=== PATIENT | female | born 1970 | race African-American/Black ===

== ENCOUNTER → 2018-09-07 07:12 | Day surgery (SDC) | payer MEDICARE, MEDICAID ==
--- NOTE | 2018-08-28 20:10 | HP ---
AMENDED REPORT NOW INCLUDES DESIGNATED COSIGNER CC: Dr. Shelli Callahan; Shivani Jaramillo NP * PREOPERATIVE HISTORY AND PHYSICAL: DATE OF ADMISSION/SURGERY: 09/07/18 This patient is scheduled for same-day surgery admission by Dr. Hendricks on Monday , 09/07/18. DATE OF PREOPERATIVE HISTORY AND PHYSICAL EXAMINATION: 08/28/18. ATTENDING SURGEON: Dr. Manuela Hendricks * (dictated by Chloe Barnard NP) CHIEF COMPLAINT: Right breast cancer. HISTORY OF PRESENT ILLNESS: The patient is a 48-year-old female recently evaluated by Dr. Hendricks for a new diagnosis of right breast cancer. The patient had not noticed any changes in her breast, but during a recent mammogram , an abnormality was identified in the inferior outer quadrant of the right breast at the approximate 7 o'clock position; sonoguided core biopsy was done and revealed invasive mammary adenocarcinoma, ER and MT positive, HER-2/lloyd negative. In retrospect, she states she has had some vague sensation in the right breast and had 1 episode of nipple discharge. She denies any pain. A maternal great aunt had breast cancer at age 23 and lived to be 81. Menarche was at age 16, she states that her periods are becoming more irregular; last menstrual period started 08/06/18. She is not taking control pills. She denies any family history of ovarian cancer. She has never been . Additionally, she underwent MRI of bilateral breasts on 08/22/18. I reviewed those results with Dr. Hendricks today by phone because a new area of concern was identified in the central right breast at the approximate 3 o'clock position and MRI-guided biopsy of this area was recommended. Dr. Hendricks spoke to the patient by phone today and ordered the MRI- guided biopsy to be done prior to the patient's scheduled surgery on 09/07/18. Dr. Hendricks discussed the nature of breast cancer, the nature of the surgical procedure, the relevant risks and benefits and today I reviewed the expected postoperative care and recovery. The patient has had a chance to ask questions and stated that she understands the information and is satisfied with the answers given to her questions. She will sign surgical consent on the day of surgery. PAST MEDICAL HISTORY: Significant for hypertension. PAST SURGICAL HISTORY: Left knee arthroscopy and reattachment of portion of her right middle finger. OB HISTORY: 0; last menstrual period started 09/06/18 and she is up to date with pelvic and Pap smear. MEDICATIONS: 1. Hydrochlorothiazide 25 mg p.o. daily. 2. Lisinopril 30 mg p.o. daily. 3. Ibuprofen 600 mg four times a day p.r.n. 4. Multivitamin daily. 5. Vitamin D3 1000 International Units daily. ALLERGIES: No known drug allergies; she does have the following food allergies , CHOCOLATE, DAIRY PRODUCTS, TREE NUTS, and TOMATOES. FAMILY HISTORY: Maternal aunt diagnosed with breast cancer at age 23, she underwent a mastectomy and lived in to her 80s; no known ovarian cancer. 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 REVIEW OF SYSTEMS: Constitutional: No fevers, chills, excessive fatigue, or weight loss. Endocrine: No diabetes or thyroid disease. Hematologic: No easy bruising or bleeding. No history of blood transfusions. Breasts: As described in history of present illness. Respiratory: No dyspnea on exertion. No chronic cough. Cardiovascular: No anginal chest pain or palpitations. Gastrointestinal: No nausea, vomiting, diarrhea, GI bleeding, or constipation. Genitourinary: No dysuria. Musculoskeletal: No back or joint pain. She does report left knee pain. Neurologic: No headache or blurred vision. No areas of focal weakness or numbness. General: No history of anesthesia complications, no history of deep vein thrombosis or pulmonary embolism. PHYSICAL EXAMINATION GENERAL SURVEY: The patient is a 48-year-old black female, well developed, well nourished, in no acute distress. VITAL SIGNS: Height 66 inches, weight 160 pounds, body mass index 25.8. Blood pressure 132/90, pulse 72 and regular, respiratory rate 16, temperature 98.4 tympanic. HEENT: Benign. NECK: Supple. No cervical lymphadenopathy. No supraclavicular lymphadenopathy. No thyromegaly. LUNGS: Breath sounds bilaterally clear and equal. BREASTS: Left breast slightly larger than the right; skin is intact on the breasts bilaterally; left breast is diffusely nodular, no dominant masses noted ; in the lower outer quadrant of the right breast, there is a small nodule at the previous biopsy site, no infection. Nipples normal to inspection, no nipple discharge bilaterally. There is some shoddy right axillary adenopathy, no left axillary adenopathy. HEART: Regular rate and rhythm. No murmurs or rubs appreciated. ABDOMEN: Flat, soft. Active bowel sounds. No obvious masses or organomegaly. Nontender throughout. PELVIC: Exam deferred. RECTAL: Exam deferred. BACK: No CVA tenderness. EXTREMITIES: Warm without edema or skin ulceration. NEUROLOGIC: Alert and oriented x3. Steady gait. SKIN: Warm, dry, intact. IMPRESSION: Right breast cancer. PLAN: Same-day surgery admission to Dr. Hendricks's service on 09/07/18, for needle localization, excision of right breast cancer and sentinel lymph node biopsy. KISHOR BARNARD NP [id number]/[facility] #: [id number] MAURI
[~2018-09-07 07:12] MED LIST: Acetaminophen TAB* 325 MG PO PRN; Buffered Lidocaine 0.9% SYRIN* 5 ML/SYR SYRINGE INTRADERM ONE; Bupivacaine 0.5% W/EPI SDV* 30 ML VIAL ONE; Dexamethasone IV* 4 MG/ML 1 ML (4 MG) ONE; DiMENhydriNATE IV* 50 MG/ML VIAL IV PUSH PRN; HYDROcodone/ACETAMIN 5-325 MG* 1 TAB PO PRN; Ketorolac INJ* 30 MG/ML 1 ML VIAL IV PRN; Lidocaine 1% INJ* 10 MG/ML 30 ML SDV ONE; Lidocaine 2% PF * 5 ML VIAL ONE; Lidocaine 2.5%/Prilocain 2.5%* 5 GM TUBE ONE; Midazolam* 1 MG/ML 5 ML VIAL (5 MG) ONE; Morphine VIAL* 4 MG/ML VIAL (1 ml vial) IV PRN; Naloxone* 0.4 MG/ML 1 ML VIAL IV PRN; Ondansetron INJ* 2 MG/ML VIAL ONE; PROCHLORPERAZINE INJ 5 MG/ML 2 ML VIAL IV PRN; Propofol* 10 MG/ML 20 ML BTL IV PUSH ONE; ceFAZolin 2 GM PREMIX in ORs 2 GM/50 ML BAG IVPB ONE; fentaNYL* 50 MCG/ML 2 ML VIAL (100 MCG VIAL) IV PRN; fentaNYL* 50 MCG/ML 5 ML VIAL (250 MCG VIAL) ONE; oxyCODONE/Acetamin 5/325 MG* TAB PO PRN
--- NOTE | 2018-09-07 09:38 | RAD ---
PROCEDURE: Ultrasound-guided needle/wire localization of the right breast PREOPERATIVE DIAGNOSIS: Breast cancer POSTOPERATIVE DIAGNOSIS: Same COMPARISONS: Mammogram dated September 03, 2018, mammogram dated July 19, 2018, ultrasound dated July 19, 2018 ORNAMENTAL PLASTERER HELPER: Moshe Caba MD ANESTHESIA: Local anesthesia with 1% lidocaine without epinephrine FLUOROSCOPY TIME: None CONTRAST: None PROCEDURAL NARRATIVE: The procedure was explained to the patient who indicated understanding. Written and verbal informed consent was obtained. An opportunity was given to ask and answer questions. A timeout was performed. The patient was prepped and draped in the usual sterile fashion. Using ultrasound guidance, a needle/wire localization system was advanced to the target lesion in the right breast. Once position was confirmed, the needle was removed using pin pull technique. Post localization mammography was performed. The wound was dressed and the wire was secured. FINDINGS: Again noted is a hypoechoic nodule of the right breast in the 7:00 position. Spot images demonstrate the localization wire within the nodule. SPECIMENS: Pending COMPLICATIONS: None DISPOSITION: The patient tolerated the procedure well, without complications during or immediately following the procedure. The patient was sent to the nuclear medicine suite in good, stable condition. IMPRESSION: 1. TECHNICALLY SUCCESSFUL, UNCOMPLICATED ULTRASOUND-GUIDED NEEDLE-WIRE LOCALIZATION OF THE RIGHT BREAST. 2. HISTOLOGY IS PENDING
--- NOTE | 2018-09-07 09:41 | RAD ---
CLINICAL HISTORY: Status post ultrasound-guided needle-wire localization COMPARISON: September 03, 2018, July 19, 2018, ultrasound dated September 07, 2013, ultrasound dated July 19, 2018 TECHNIQUE: Right craniocaudal and lateral-medial mammograms were obtained. A computer-aided detection system (CAD) was also used for evaluation. FINDINGS: BREAST COMPOSITION: 4 The breasts are extremely dense, which lowers the sensitivity of mammography MASSES: There are no suspicious nodules or masses. CALCIFICATIONS: There are no suspicious calcifications. ASYMMETRY: There are no suspicious asymmetries. ARCHITECTURAL DISTORTION: There is no architectural distortion. SKIN: There is no skin thickening. LYMPH NODES: There is no lymphadenopathy. SPECIAL CASES: None OTHER FINDINGS: 2 biopsy marker clips noted in the right breast. The right lower outer clip corresponds to the ultrasound-guided core biopsy marker based on comparison to previous mammography and ultrasound. The hook wire is noted in close proximity to the ultrasound core biopsy marker in the right lower outer breast. Images were labeled. ASSESSMENT: Needle-wire localization of the right breast for excisional biopsy RECOMMENDATION: Histology is pending No BIRADS code needed No Code Needed
--- NOTE | 2018-09-07 12:12 | RAD ---
HISTORY: Breast cancer. Lymphoscintigraphy of the breast for the purposes of sentinel node identification. COMPARISONS: Mammogram dated September 07, 2018 TECHNIQUE: Previous imaging was reviewed. The procedure was explained to the patient who indicated that she understood. Written and verbal informed consent was obtained, with an opportunity to ask and answer questions. The breast was marked. A timeout was performed. The patient was prepped and draped in the usual sterile fashion. Technetium 99m sulfur colloid was administered in a subdermal fashion in 4 divided aliquots in a 180 degree arc along the areolar margin of the RIGHT breast, centered on the position of the primary breast lesion. Cine and planar imaging was performed. The first appearing axillary node was identified with the overlying skin marked. DOSE: Technetium 99m sulfur colloid, 0.297 millicuries, injected at 11:01 AM FINDINGS: Uptake is noted within a RIGHT axillary lymph node. The site of uptake is marked on the overlying skin. OTHER: None IMPRESSION: TECHNICALLY SUCCESSFUL, UNCOMPLICATED, LYMPHOSCINTIGRAPHY OF THE RIGHT BREAST FOR THE PURPOSES OF SENTINEL NODE LOCALIZATION.
[2018-09-07 17:52] VITALS: BP 126/81
--- NOTE | 2018-09-08 04:10 | OP ---
CC: [facility]; Dr. Shelli Callahan OPERATIVE REPORT: DATE OF OPERATION: 09/07/18 DATE OF : 72 SURGEON: Manuela Hendricks MD CHOKER SETTER: There was no assistant public defender for this case. PRE-OP DIAGNOSIS: Right breast cancer. POST-OP DIAGNOSIS: Right breast cancer. OPERATIVE PROCEDURE: Needle localization excision of right breast cancer and sentinel lymph node bio psy. INDICATIONS: Ms. Campbell is a 48-year-old woman, who was recently diagnosed with breast cancer. She opted for breast conserving therapy. DESCRIPTION OF PROCEDURE: On the morning of surgery, she underwent needle localization and sentinel lymph node localization without difficulty. She was then brought to the operating room, placed on th e OR table in supine position and given general anesthesia. The right breast was prepped and draped in the usual sterile fashion taking care not to dislodge the localizing wire. After infiltrating wit h local anesthetic, a curvilinear elliptical incision was made around the wire and subcutaneous tissu e was divided with electrocautery to excise the mass of tissue from around the wire. Specimen was ma rked in the usual fashion and handed off. Hemostasis was achieved with electrocautery and once this w as adequate, the wound was irrigated with saline. Some clips were placed in the cavity to aarti its c onfines and then additional local was instilled into the wound. Closure was accomplished with 3-0 Vi cryl in a subcutaneous layer and the skin was closed with 4- 0 Prolene in the subcuticular fashion. Attention was then turned to the axilla. Here, using the navigator to locate the proximal location o f the sentinel node, a curvilinear incision was made after infiltrating with local anesthetic. Subcu taneous tissue was then divided with electrocautery down to the level of the axillary fat pad. Here search was made for the sentinel node and with some difficulty in the localization process, it was id entified. It was then divided from surrounding tissue with clips used to control small lymphatic and blood vessels that approached the gland. In situ counts were around 2500 and ex vivo counts were ar ound 3500 and the axillary bed counts were 5. The wound was irrigated with saline and then closure wa s accomplished after instilling additional local using 3-0 Vicryl to approximate the subcutaneous tis kary and the skin was closed with 4-0 Prolene in a subcuticular fashion. Steri-Strips and dry sterile dressing were applied to both sites. All sponge and instrument counts were correct. The patient to lerated the procedure well and was transferred to Recovery in a stable condition. [id number]/[facility] #: [id number]
== END | disposition home or self-care (01) ==
LOC: SDS 07:12
PROVIDERS: ATTEND Surgery
DX: C50.511 Malignant neoplasm of lower-outer quadrant of right female breast (principal); I10 Essential (primary) hypertension; Z87.891 Personal history of nicotine dependence; F41.9 Anxiety disorder, unspecified
CPT/HCPCS: 77061; 78195; 81025; 88307; 88342; A9270-GY; A9541; G0279; J0690; J1100; J2250; J2405; J2704; J3010

== ENCOUNTER → 2018-09-14 15:19 | Day surgery (SDC) | payer MEDICARE, MEDICAID ==
[~2018-09-14 15:19] MED LIST changes: -Buffered Lidocaine 0.9% SYRIN* 5 ML/SYR SYRINGE INTRADERM ONE; +Bupivacaine 0.5% SDV PF* 30ML VIAL ONE; -Bupivacaine 0.5% W/EPI SDV* 30 ML VIAL ONE; +DiMENhydriNATE IV* 50 MG/ML VIAL ONE; -HYDROcodone/ACETAMIN 5-325 MG* 1 TAB PO PRN; +HYDROmorphone INJ1* 1 MG/ML SYRINGE IV PRN; -Ketorolac INJ* 30 MG/ML 1 ML VIAL IV PRN; +Ketorolac INJ* 30 MG/ML 1 ML VIAL ONE; -Lidocaine 1% INJ* 10 MG/ML 30 ML SDV ONE; -Lidocaine 2% PF * 5 ML VIAL ONE; -Lidocaine 2.5%/Prilocain 2.5%* 5 GM TUBE ONE; -Morphine VIAL* 4 MG/ML VIAL (1 ml vial) IV PRN; -PROCHLORPERAZINE INJ 5 MG/ML 2 ML VIAL IV PRN; -fentaNYL* 50 MCG/ML 2 ML VIAL (100 MCG VIAL) IV PRN; +fentaNYL* 50 MCG/ML 2 ML VIAL (100 MCG VIAL) ONE; -fentaNYL* 50 MCG/ML 5 ML VIAL (250 MCG VIAL) ONE; +oxyCODONE TAB* 5 MG TAB PO PRN; -oxyCODONE/Acetamin 5/325 MG* TAB PO PRN
--- NOTE | 2018-09-14 18:28 | OP ---
Operative Report - Blank - Operative Report Date of Operation: 09/14/18 Note: Brief Operative Note Preop Dx: Positive margin, s/p wide excision Right breast cancer Postop Dx: same Procedure: wide re-excision Right breast cancer Anesthesia: local; MAC Surgeon: Eladio Lamp Mechanic: SELENA Cobb Fluids: 900 ml LR EBL: < 50 ml Specimen: Right breast tissue with additional lateral margin Drains: none Findings: dictated
[2018-09-14 19:16] VITALS: BP 128/92
--- NOTE | 2018-09-15 04:31 | OP ---
CC: [facility]; [facility] OPERATIVE REPORT: DATE OF OPERATION: 09/14/18 DATE OF : 72 SURGEON: Manuela Hendricks MD SONG WRITER: Jordyn. PRE-OP DIAGNOSIS: Positive margin right breast cancer. POST-OP DIAGNOSIS: Positive margin right breast cancer. OPERATIVE PROCEDURE: Wide re-excision of right breast cancer. INDICATIONS: Ms. Campbell is a 48-year-old woman who recently had breast cancer excised via needle localization but the margin was found to be positive. This prompted the plan for further surgical i ntervention. DESCRIPTION OF PROCEDURE: She was brought to the operating room, placed on the OR table in the supin e position and given general anesthesia. The right breast was prepped and draped in the usual steril e fashion after the stitches from the previous surgery were removed. After infiltrating with local a nesthetic, a curvilinear elliptical incision encompassing the previous scar was made and subcutaneous tissue was divided with electrocautery to excise the mass of tissue from the region of the positive margin, which was the anterior inferior mid margin. Upon removing this tissue, it was recognized that there was some firm fibrotic tissue consistent with malignancy, so additional tissue was taken from this area in a direction that was inferolateral to the first specimen. These were all marked in the usual fashion and handed off. Hemostasis was assured with electrocautery and once this was adequate, closure was accomplished with 3-0 Vicryl in the subcutaneous layer and the skin was closed with 4-0 Prolene in a subcuticular fashion. Steri-Strips and a dry sterile dressing were applied. All sponge and instrument counts were correct. The patient tolerated the procedure well and was transferred to Recovery in a stable condition. [id number]/[facility] #: [id number]
== END | disposition home or self-care (01) ==
LOC: OR 15:19
PROVIDERS: ATTEND Surgery
DX: C50.511 Malignant neoplasm of lower-outer quadrant of right female breast (principal); Z87.891 Personal history of nicotine dependence; I10 Essential (primary) hypertension
CPT/HCPCS: 88307; J0690; J1100; J1240; J1885; J2250; J2405; J2704; J3010

== ENCOUNTER 2019-04-02 11:16 | Emergency (ER) | payer MEDICARE, MEDICAID ==
[2019-04-02] MEDS ORDERED: NS 0.9% 1000 ML** 1,000 ML IV ONE (11:45)
[2019-04-02] MEDS ORDERED: Ondansetron INJ* 2 MG/ML VIAL IV ONE (11:46)
[2019-04-02 12:02] LABS: ABS Eosinophils 0.2 10^3/ul (0-0.6); ABS Lymphocytes 1.9 10^3/ul (1.0-4.8); ABS Monocytes 0.7 10^3/ul (0-0.8); ABS Neutrophils 2.3 10^3/ul (1.5-7.7); Eosinophil % 3.4 %; Hematocrit 37 % (35-47); Hemoglobin 12.6 g/dL (12.0-16.0); Lymphocyte % 37.7 %; Mean Corpuscular HGB Conc 34 g/dL (31-36); Mean Corpuscular Hemoglobin 34 pg (27-31); Mean Corpuscular Volume 101 fL (80-97); Mean Platelet Volume 7.8 fL (7.4-10.4); Nucleated Red Blood Cells % 0.1; Platelet Count 296 10^3/uL (150-450); Red Blood Count 3.66 10^6 /uL (3.70-4.87); Red Cell Distribution Width 14 % (10.5-15); White Blood Count 5.1 10^3/uL (3.5-10.8)
--- NOTE | 2019-04-02 12:13 | ED ---
HPI Chest Pain - HPI Summary HPI Summary: This patient is a 48 year old F presenting to [facility] with a chief complaint of L anterior chest pain starting 03/31/19. The pt reports that the episodes last for 10-20 minutes and has pain radiating into the L eye. During the episode the pt reports SOB, N/V/D, and diaphoresis, lightheadedness, fast and irregular heart rate. Pt denies any prior Hx of episodes. Symptoms are alleviated by nothing. Symptoms are aggravated by nothing. Pt also reports a rash that has started on her L anterior neck that extends to the back of her neck starting 03/31/19. The patient rates the pain 5/10 in severity. Pt is a cancer patient with Dr. Dang and has had 2 previous lumpectomies. She reports no previous Hx of blood clots, ports, or shingles. She had her last dose of cancer medication this morning. Her mother is diabetic but she has no previous pertinent history other than breast cancer. - History of Current Complaint Chief Complaint: EDChestPainROMI Time Seen by Provider: 04/02/19 11:35 Hx Obtained From: Patient Onset/Duration: Started Days Ago - 03/31/19 Timing: Intermittent, Lasting Minutes - 10-20 minutes Initial Severity: Moderate Current Severity: Moderate Pain Intensity: 5 Pain Scale Used: 0-10 Numeric Chest Pain Location: Left Anterior Chest Pain Radiates: Yes Chest Pain Radiates To:: Other - L eye Character: Sharp/Stabbing Aggravating Factor(s): Nothing Alleviating Factor(s): Nothing Associated Signs and Symptoms: Positive: Chest Pain, Headaches, Shortness of Breath, Lightheadedness, Diaphoresis, Nausea, Vomiting, Other: - positive: diarrhea, fast and irregular heart rate, rash, fatigue - Allergy/Home Medications Allergies/Adverse Reactions: Allergies Allergy/AdvReac Type Severity Reaction Status Date / Time chocolate flavor Allergy MIGRAINES/CHEST Verified 02/25/19 07:24 PAIN Tree Nuts Allergy Anaphylatic Verified 02/25/19 07:24 Shock dairy Allergy Unknown Uncoded 02/25/19 07:24 Reaction Details tomatoes Allergy Heartburn Uncoded 02/25/19 07:24 PMH/Surg Hx/FS Hx/Imm Hx Previously Healthy: No Endocrine/Hematology History: Denies: Hx Diabetes Cardiovascular History: Reports: Hx Hypertension Denies: Hx Pacemaker/ICD History: Denies: Hx Renal Disease Musculoskeletal History: Reports: Other Musculoskeletal History - LEFT KNEE- [id number] A MD AT [facility] Sensory History: Reports: Hx Contacts or Glasses - READING GLASSES Denies: Hx Hearing Aid Opthamlomology History: Reports: Hx Contacts or Glasses - READING GLASSES Psychiatric History: Reports: Hx Anxiety - PTSD-07/2001 Denies: Hx Panic Disorder - Cancer History Cancer Type, Location and Year: RIGHT BREAST Hx Chemotherapy: No Hx Radiation Therapy: No - Surgical History Surgery Procedure, Year, and Place: LEFT KNEE RECONTRUCTION. FINGER STICHED BACK ON Hx Anesthesia Reactions: No Infectious Disease History: No Infectious Disease History: Denies: Traveled Outside the [place] in Last 30 Days - Family History Known Family History: Positive: Diabetes - mother - Social History Occupation: Unemployed - OTHER Lives: Alone Alcohol Amount: 3 Hx Substance Use: Yes Substance Use Comment - Amount & Last Used: OCCASIONAL USE Hx Tobacco Use: Yes Smoking Status (MU): Former Smoker - quit 4 years ago Type: Cigarettes Amount Used/How Often: 1-5 CIGARETTES PER DAY X ON AND OFF Have You Smoked in the Last Year: No Review of Systems Positive: Fatigue, Skin Diaphoresis Positive: Palpitations - fast and irregular, Chest Pain - L anterior, radiates into the L eye Positive: Shortness Of Breath Positive: Vomiting, Diarrhea, Nausea Positive: Rash - L anterior neck Neurological: Other - lightheadedness Positive: Headache All Other Systems Reviewed And Are Negative: Yes Physical Exam - Summary Physical Exam Summary: Appearance: well appearing, no pain distress Skin: warm, dry, reflects adequate perfusion; Rash on L anterior neck. Erythematous papular area, painful and extends to the back Head/face: normal Eyes: EOMI, YANELY ENT: mucous membranes moist Neck: supple, non-tender Respiratory: CTA, breath sounds present Cardiovascular: RRR, pulses symmetrical Abdomen: non-tender, soft Bowel Sounds: present Musculoskeletal: normal, strength/ROM intact Neuro: normal, sensory motor intact, A&Ox3 Triage Information Reviewed: Yes Vital Signs On Initial Exam: Initial Vitals Temp Pulse Resp BP Pulse Ox 97.8 F 73 18 138/78 99 04/02/19 11:32 04/02/19 11:32 04/02/19 11:32 04/02/19 11:32 04/02/19 11:32 Vital Signs Reviewed: Yes Diagnostics - Vital Signs Vital Signs Temp Pulse Resp BP Pulse Ox 04/02/19 11:32 97.8 F 73 18 138/78 99 - Laboratory Lab Results: Lab Results 04/02/19 Range/Units 11:47 WBC 5.1 (3.5-10.8) 10^3/uL RBC 3.66 L (3.70-4.87) 10^6 /uL Hgb 12.6 (12.0-16.0) g/dL Hct 37 (35-47) % MCV 101 H (80-97) fL MCH 34 H (27-31) pg MCHC 34 (31-36) g/dL RDW 14 (10.5-15) % Plt Count 296 (150-450) 10^3/uL MPV 7.8 (7.4-10.4) fL Neut % (Auto) 45.1 % Lymph % (Auto) 37.7 % [place] % (Auto) 12.9 % Eos % (Auto) 3.4 % Baso % (Auto) 0.9 % Absolute Neuts (auto) 2.3 (1.5-7.7) 10^3/ul Absolute Lymphs (auto) 1.9 (1.0-4.8) 10^3/ul Absolute Monos (auto) 0.7 (0-0.8) 10^3/ul Absolute Eos (auto) 0.2 (0-0.6) 10^3/ul Absolute Basos (auto) 0.0 (0-0.2) 10^3/ul Absolute Nucleated RBC 0.0 10^3/ul Nucleated RBC % 0.1 Result Diagrams: 04/02/19 11:47 04/02/19 11:47 Lab Statement: Any lab studies that have been ordered have been reviewed, and results considered in the medical decision making process. - Radiology CXR Radiology Interpretation Completed By: Radiologist Summary of Radiographic Findings: IMPRESSION: NO ACTIVE CARDIOPULMONARY DISEASE. ED provider has reviewed this report. - CT Chest/Thorax CTA CT Interpretation Completed By: Radiologist Summary of CT Findings: NO PULMONARY ARTERIAL FILLING DEFECT TO SUGGEST PULMONARY EMBOLISM. STABLE MILDLY ENLARGED RIGHT HILAR LYMPH NODE. ED Physician has reviewed this report. - EKG 1120 Cardiac Rate: NL - 64 BPM EKG Rhythm: Sinus Rhythm ST Segment: Normal Summary of EKG Findings: Normal sinus rhythym and rate of 64 BPM with a normal axis and normal ST elevation. Re-Evaluation - Re-Evaluation First Eval Re-Evaluation Time: 12:56 Change: Improved Comment: Patient was informed on discharge plan. Was agreeable. Chest Pain Course/Dx - Course Course Of Treatment: Nurses notes reviewed. Patient with history of metastatic breast cancer with lesions known to be on the long presents with chest pain, difficulty breathing. She had short episodes of palpitations that caused this. She has not had any symptoms here. Her CT pulmonary angiogram is negative. Troponin is negative. Patient is fully asymptomatic at this time. I reviewed this with her oncologist will follow her up closely and reevaluate in the outpatient setting. - Chest Pain Differential Diagnosis/HQI/PQRI: Acute [place], ACS, Angina, Aortic Aneurysm, CHF, Chest Wall, GI Disease, Pulmonary Embolism - Diagnoses Provider Diagnoses: History of breast cancer, Palpitations, Shingles - Provider Notifications Discussed Care Of Patient With: Syd Ramos Time Discussed With Above Provider: 12:54 Instructed by Provider To: Other - Patient's case was discussed with Dr. Ramos, Oncology, and he recommended discharging the patient home. Discharge - Sign-Out/Discharge Documenting (check all that apply): Patient Departure - discharge Patient Received Moderate/Deep Sedation with Procedure: No - Discharge Plan Condition: Improved Disposition: HOME Prescriptions: ValACYclovir (*) [Valtrex 500 mg (*)] 1,000 mg PO TID #42 tab Patient Education Materials: Heart Palpitations (ED), Shingles (ED) Referrals: Arminda Gordon DO [Primary Care Provider] - Donn Dang MD [Medical Doctor] - Additional Instructions: Stay well-hydrated. Take a baby aspirin every day. Call your doctor now to schedule prompt follow-up. Return if worse, persistent palpitations, chest pain , difficulty breathing, worse or other concerns. - Billing Disposition and Condition Condition: IMPROVED Disposition: Home - Attestation Statements Document Initiated by Scribe: Yes Documenting Scribe: Joseph Ponce Provider For Whom Scribe is Documenting (Include Credential): Keith Triana MD Scribe Attestation: Joseph Jenkins , scribed for Keith Triana MD on 04/02/19 at 1656. Scribe Documentation Reviewed: Yes Provider Attestation: The documentation as recorded by the scribe, Joseph Ponce accurately reflects the service I personally performed and the decisions made by me, Keith Triana MD Status of Scribe Document: Viewed
[2019-04-02 12:14] LABS: INR 1.11 (0.82-1.09)
[2019-04-02 12:19] LABS: ALT 12 U/L (7-52); AST 16 U/L (13-39); Albumin 3.9 g/dL (3.2-5.2); Albumin/Globulin Ratio 1.3 (1-3); Alkaline Phosphatase 38 U/L (34-104); Anion Gap 6 mmol/L (2-11); BUN/Creatinine Ratio 17.1 (8-20); Blood Urea Nitrogen 12 mg/dL (6-24); CO2 Carbon Dioxide 24 mmol/L (22-32); Chloride 107 mmol/L (101-111); EGFR African American 108.5 (>60); EGFR Non-African American 89.7 (>60); Glucose 98 mg/dL (70-100); Potassium 3.8 mmol/L (3.5-5.0); Sodium 137 mmol/L (135-145); Total Protein 6.9 g/dL (6.4-8.9)
[2019-04-02 12:25] LABS: HCG Pregnancy < 0.60 mIU/mL
[2019-04-02] MEDS ORDERED: Iohexol 350* (CONTRAST) 500 ML MDV IV ONE (12:25)
[2019-04-02 13:15] VITALS: BP 124/64
== END 2019-04-02 13:14 | disposition home or self-care (01) ==
LOC: ED 11:16
DX: R00.2 Palpitations (principal); B02.9 Zoster without complications; I10 Essential (primary) hypertension; F41.9 Anxiety disorder, unspecified; Z85.3 Personal history of malignant neoplasm of breast; Z87.891 Personal history of nicotine dependence
CPT/HCPCS: 36415; 71045; 71275; 80053; 83605; 84484; 84702; 85025; 85610; 93005; 96361; 96374; 99283; J2405; Q9967

== ENCOUNTER 2019-04-26 09:49 | Emergency (ER) | payer MEDICARE, MEDICAID ==
[2019-04-26] MEDS ORDERED: methylPREDNISolone 125 MG* 2 ML VIAL IV ONE (10:17)
[2019-04-26] MEDS ORDERED: NS 0.9% 1000 ML** 1,000 ML IV ONE (10:17)
[2019-04-26] MEDS ORDERED: diPHENhydraMINE PO* 50 MG PO ONE (10:17)
[2019-04-26] MEDS ORDERED: Famotidine TAB* 20 MG PO ONE (10:17)
--- NOTE | 2019-04-26 10:20 | ED ---
Complex/Multi-Sys Presentation - HPI Summary HPI Summary: Pt. is a 48 y.o female who presents to the ER for possible allergic reaction to Bactrim. Pt. notes hx of BC and recently stopped taking rx Tamoxifen due to side effects. Pt. states over the past week she has been having lower abd. pain and flank pain. She saw her PCP and was noted to have blood in urine and placed on bactrim. Pt. states she took first dose last night and woke up today with swelling to left side of upper and lower lips. Pt. denies associated sxs of difficulty swallowing, hoarse voice, SOB, wheezing, rash. Pt. feels swelling is slowly improving. Symptoms are moderate in severity. No current modifying factors. - History Of Current Complaint Chief Complaint: EDAllergicReaction Time Seen by Provider: 04/26/19 10:02 Hx Obtained From: Patient - Allergies/Home Medications Allergies/Adverse Reactions: Allergies Allergy/AdvReac Type Severity Reaction Status Date / Time chocolate flavor Allergy MIGRAINES/CHEST Verified 02/25/19 07:24 PAIN Tree Nuts Allergy Anaphylatic Verified 02/25/19 07:24 Shock dairy Allergy Unknown Uncoded 02/25/19 07:24 Reaction Details tomatoes Allergy Heartburn Uncoded 02/25/19 07:24 Home Medications: Home Medications Sulfamethox/Trimethoprim DS* [Bactrim DS 800/160 TAB*] 1 tab PO BID 04/26/19 [ History Confirmed 04/26/19] PMH/Surg Hx/FS Hx/Imm Hx Previously Healthy: Yes Endocrine/Hematology History: Denies: Hx Diabetes Cardiovascular History: Reports: Hx Hypertension Denies: Hx Pacemaker/ICD History: Denies: Hx Renal Disease Musculoskeletal History: Reports: Other Musculoskeletal History - LEFT KNEE- [id number] A MD AT [facility] Sensory History: Reports: Hx Contacts or Glasses - READING GLASSES Denies: Hx Hearing Aid Opthamlomology History: Reports: Hx Contacts or Glasses - READING GLASSES Psychiatric History: Reports: Hx Anxiety - PTSD-07/2001 Denies: Hx Panic Disorder - Cancer History Cancer Type, Location and Year: RIGHT BREAST Hx Chemotherapy: No Hx Radiation Therapy: No - Surgical History Surgery Procedure, Year, and Place: LEFT KNEE RECONTRUCTION. FINGER STICHED BACK ON Hx Anesthesia Reactions: No Infectious Disease History: No Infectious Disease History: Denies: Traveled Outside the [place] in Last 30 Days - Family History Known Family History: Positive: Diabetes - mother, Non-Contributory - Social History Occupation: Employed Full-time Lives: Alone Alcohol Use: None Alcohol Amount: 3 Hx Substance Use: Yes Substance Use Type: Reports: None Substance Use Comment - Amount & Last Used: OCCASIONAL USE Hx Tobacco Use: Yes Smoking Status (MU): Former Smoker - quit 4 years ago Type: Cigarettes Amount Used/How Often: 1-5 CIGARETTES PER DAY X ON AND OFF Have You Smoked in the Last Year: No Review of Systems Constitutional: Negative Negative: Fever, Chills Eyes: Negative ENT: Negative Cardiovascular: Negative Negative: Palpitations, Chest Pain Respiratory: Negative Negative: Shortness Of Breath, Cough Positive: Abdominal Pain. Negative: Vomiting, Diarrhea, Nausea Positive: flank pain, hematuria Musculoskeletal: Negative Skin: Negative Neurological: Negative All Other Systems Reviewed And Are Negative: Yes Physical Exam Triage Information Reviewed: Yes Vital Signs On Initial Exam: Initial Vitals Temp Pulse Resp BP Pulse Ox 98.3 F 93 18 139/111 98 04/26/19 09:53 04/26/19 09:53 04/26/19 09:53 04/26/19 09:53 04/26/19 09:53 Vital Signs Reviewed: Yes Appearance: Positive: Well-Appearing - Pt. sitting up in bed in NAD. Left side of top and bottom lip swollen Skin: Positive: Warm, Dry Head/Face: Positive: Normal Head/Face Inspection Eyes: Positive: Normal, EOMI, YANELY Neck: Positive: Supple Respiratory/Lung Sounds: Positive: Clear to Auscultation, Breath Sounds Present. Negative: Rales, Rhonchi, Wheezes Cardiovascular: Positive: Normal, RRR Abdomen Description: Positive: Other: - Abd. is soft with marked tenderness to suprapubic region and mildly to LLQ. Mild right CVA tenderness. Neurological: Positive: Normal, CN Intact II-III Psychiatric: Positive: Affect/Mood Appropriate Diagnostics - Vital Signs Vital Signs Temp Pulse Resp BP Pulse Ox 04/26/19 09:53 98.3 F 93 18 139/111 98 - Laboratory Result Diagrams: 04/26/19 10:22 04/26/19 10:22 Lab Statement: Any lab studies that have been ordered have been reviewed, and results considered in the medical decision making process. Complex Multi-Symp Course/Dx Course Of Treatment: Patient presenting with signs of allergic reaction to potentially Bactrim. Her only symptom is swelling to the left side of her lips. She has no mucosal involvement, evidence of Lopes-Alex syndrome or evidence of anaphylaxis. Patient also is complaining of this ongoing lower abdominal tenderness. She does have significant pain on exam. Given history Will obtain basic labs and abdominal CT scan for further evaluation. Patient was given a dose of Solu-Medrol, Benadryl and Pepcid for allergic reaction. Blood work is unremarkable other than mild elevation in liver function. Urinalysis negative for infection. Urine culture from last week was negative for growth. Abdominal CT as below. Pelvic ultrasound ordered for further evaluation. Patient's swelling is improving and she is resting comfortably. Abd./pelvic CT per radiology: IMPRESSION: #. 3.2 cm RIGHT ovarian lesion most suspicious for a hemorrhagic cyst. Probable 4 cm. subserosal uterine fibroid. Consider pelvic ultrasound for further assessment. #. Normal appendix documented. No pathologic process of the alimentary tract evident. #. Negative for lymphadenopathy. Pelvic US per radiology: IMPRESSION: 1. FIBROID UTERUS. 2. 3.7 CM SIMPLE CYST OF THE RIGHT OVARY. 3. 2.4 CM HETEROGENEOUSLY ISOECHOIC LESION OF THE LEFT OVARY, POSSIBLY A HEMORRHAGIC. CYST, THOUGH THE IMAGING APPEARANCE IS INDETERMINATE. RECOMMEND FOLLOW-UP IMAGING IN 6. WEEKS-12 WEEKS IS RECOMMENDED FOR RESOLUTION OR CONSIDERATION OF FURTHER CHARACTERIZATION. WITH CONTRAST-ENHANCED MRI OF THE PELVIS IN THE NONACUTE SETTING. 4. NO SONOGRAPHIC FEATURES OF TORSION. PLEASE NOTE THAT PARTIAL OR INTERMITTENT TORSION. MAY BE SONOGRAPHICALLY NORMAL. Results were discussed with patient. We'll have her follow-up with her oncologist and PCP for further evaluation of potential ovarian cysts. Physical her abdominal pain is secondary to cyst and uterine fibroids. Edema to lips has essentially resolved since being in the ER. We'll keep on a few days of prednisone and Pepcid and Benadryl as needed. To discontinue Bactrim. We will not restart antibiotic right now given negative urine culture. Patient understands and agrees with plan. - Diagnoses Differential Diagnoses/HQI/PQRI: Urinary Tract Infection Provider Diagnoses: Allergic reaction, Abdominal pain, Ovarian cyst, Uterine fibroid Discharge - Sign-Out/Discharge Documenting (check all that apply): Patient Departure Patient Received Moderate/Deep Sedation with Procedure: No - Discharge Plan Condition: Improved Disposition: HOME Prescriptions: Famotidine [Pepcid] 20 mg PO DAILY #5 tablet predniSONE TAB* [Deltasone 20 MG TAB*] 40 mg PO DAILY #10 tab Patient Education Materials: Ovarian Cyst (ED), Antibiotic Medication Allergy ( ED) Referrals: Arminda Gordon DO [Primary Care Provider] - Additional Instructions: Call PCP today for a close follow up appointment Tylenol or Motrin for pain as directed Medication as directed Stop taking bactrim Return to ER if symptoms change or worsen - Billing Disposition and Condition Condition: IMPROVED Disposition: Home
[2019-04-26 10:29] LABS: ABS Eosinophils 0.2 10^3/ul (0-0.6); ABS Lymphocytes 1.7 10^3/ul (1.0-4.8); ABS Monocytes 0.9 10^3/ul (0-0.8); ABS Neutrophils 1.5 10^3/ul (1.5-7.7); Eosinophil % 5.2 %; Hematocrit 37 % (35-47); Hemoglobin 12.8 g/dL (12.0-16.0); Lymphocyte % 39.4 %; Mean Corpuscular HGB Conc 34 g/dL (31-36); Mean Corpuscular Hemoglobin 34 pg (27-31); Mean Corpuscular Volume 100 fL (80-97); Mean Platelet Volume 7.7 fL (7.4-10.4); Nucleated Red Blood Cells % 0.1; Platelet Count 239 10^3/uL (150-450); Red Blood Count 3.72 10^6 /uL (3.70-4.87); Red Cell Distribution Width 13 % (10-15); White Blood Count 4.4 10^3/uL (3.5-10.8)
[2019-04-26 10:58] LABS: Albumin 3.7 g/dL (3.2-5.2); Albumin/Globulin Ratio 1.1 (1-3); BUN/Creatinine Ratio 11.4 (8-20); C Reactive Protein 16.58 mg/L (<8.01); Calcium 9.2 mg/dL (8.6-10.3); EGFR African American 108.5 (>60); EGFR Non-African American 89.7 (>60); Globulin 3.4 g/dL (2-4); Potassium 3.7 mmol/L (3.5-5.0); Total Bilirubin 0.4 mg/dL (0.2-1.0); Total Protein 7.1 g/dL (6.4-8.9)
[2019-04-26] MEDS ORDERED: Iohexol 300* (CONTRAST) 10 ML SDV IV ONE (11:08)
[2019-04-26 12:09] LABS: Urine Appearance Clear; Urine Bilirubin Negative (Negative); Urine Blood Negative (Negative); Urine Color Colorless; Urine Glucose Negative (Negative); Urine Ketones Negative (Negative); Urine Nitrite Negative (Negative); Urine Protein Negative (Negative); Urine Specific Gravity 1.001 (1.010-1.030); Urine Urobilinogen Negative (Negative)
[2019-04-26 15:19] VITALS: BP 132/89
== END 2019-04-26 15:22 | disposition home or self-care (01) ==
LOC: ED 09:49
DX: T78.40XA Allergy, unspecified, initial encounter (principal); R10.9 Unspecified abdominal pain; N83.291 Other ovarian cyst, right side; D25.9 Leiomyoma of uterus, unspecified; X58.XXXA Exposure to other specified factors, initial encounter; I10 Essential (primary) hypertension; Z87.891 Personal history of nicotine dependence
CPT/HCPCS: 36415; 74177; 76830; 76856; 80053; 81003; 83605; 83690; 85025; 86140; 96361; 96374; 99283; A9270-GY; J2930; Q9967